=== PATIENT | male | born 1950 | race Caucasian/White ===

== ENCOUNTER 2019-09-24 07:58 | Emergency (ER) | payer MEDICARE ==
[~2019-09-24] VITALS: Ht 170.2 cm; Wt 93.0 kg
[~2019-09-24 07:58] MED LIST: INSNPH SQ; INSREG SQ; LOSA25TA41 PO; NIFE10 PO
[2019-09-24] MEDS ORDERED: NAPR250T4 PO (08:11)
[2019-09-24 08:20] LABS: GLUCOSE,POINT OF CARE 122 MG/DL (70-110)
[2019-09-24 10:11] VITALS: BP 130/73
== END 2019-09-24 10:35 | disposition home or self-care (01) ==
LOC: EMS 08:02
DX: G89.29 Other chronic pain (principal); M25.551 Pain in right hip; R10.31 Right lower quadrant pain; I25.10 Atherosclerotic heart disease of native coronary artery without angina pectoris; E11.9 Type 2 diabetes mellitus without complications; E78.00 Pure hypercholesterolemia, unspecified; I10 Essential (primary) hypertension; Z79.4 Long term (current) use of insulin
CPT/HCPCS: 73502